=== PATIENT | female | born 1975 | race American Indian/Alaskan Native ===

== ENCOUNTER 2016-11-16 06:20 | Emergency (ER) | payer OTHER ==
[2016-11-16] MEDS ORDERED: LOPRESSOR PO ONE (06:39)
[2016-11-16 07:05] LABS: Basophils % (Auto) 0.7 % (0.0-1.8); Hematocrit 44.1 % (30.3-42.9); Hemoglobin 14.5 gm/dl (10.1-14.3); Mean Corpuscular HGB Conc 33 % (30-34); Mean Corpuscular Hemoglobin 27 pg (28-32); Mean Corpuscular Volume 82 fl (79-97); Platelet Count 276 K/mm3 (140-440); Red Blood Count 5.38 M/mm3 (3.65-5.03); Red Cell Distribution Width 13.8 % (13.2-15.2); White Blood Count 9.3 K/mm3 (4.5-11.0)
[2016-11-16 07:20] LABS: Anion Gap 15 mmol/L; Blood Urea Nitrogen 11 mg/dL (7-17); Carbon Dioxide 27 mmol/L (22-30); Glucose 413 mg/dL (65-100); Potassium 4.1 mmol/L (3.6-5.0); Sodium 135 mmol/L (137-145)
[2016-11-16 08:28] LABS: Bacteria,Urine 1+ /HPF (Negative); Bilirubin,Urine NEG (Negative); Blood,Urine MOD (Negative); Ketones,Urine NEG (Negative); Leukocyte Esterase,Urine MOD (Negative); Mucus,Urine FEW /HPF; Nitrite,Urine NEG (Negative); Protein,Urine <15 mg/dL mg/dL (Negative); Urobilinogen,Urine < 2.0 mg/dL (<2.0)
[2016-11-16] MEDS ORDERED: TORADOL IV ONE (11:39)
[2016-11-16] MEDS ORDERED: NACL 0.9% 1000 ML 1,000 ML IV ONE (11:39)
--- NOTE | 2016-11-16 11:44 | Emergency Department Report ---
ED Back Pain/Injury HPI - General Chief Complaint: Back Pain/Injury Stated Complaint: SEVERE BACK PAIN Time Seen by Provider: 11/16/16 11:02 Source: patient Limitations: No Limitations - History of Present Illness Initial Comments: 41-year-old female with history of hypertension and [id number] diabetes presenting today because of bilateral lower back pain for the last 2 days. Patient states that this came on slowly when she woke up. States that the pain is worse when trying to get up or do certain movements. She's had this in the past a few times. Denies any fever, dysuria, hematuria, saddle anesthesia, incontinence, difficulty walking, numbness, weakness, history of cancer or IV drug use. Has not had her diabetes medications since yesterday. - Related Data Home Medications Medication Instructions Recorded Confirmed Last Taken Amlodipine Besylate/Benazepril 1 each PO QDAY 11/16/16 11/16/16 11/16/16 [Lotrel 5-20 mg] Metoprolol [Lopressor TAB] 50 mg PO DAILY 11/16/16 11/16/16 11/16/16 Pravastatin Sodium [Pravastatin] 40 mg PO DAILY 11/16/16 11/16/16 11/15/16 Sitagliptin Phos/Metformin HCl 1 tab PO BID 11/16/16 11/16/16 11/15/16 [Janumet 50-1,000 mg] Previous Rx's Medication Instructions Recorded Last Taken Type Diazepam Tab [Valium] 5 mg PO QHS PRN #5 tab 11/16/16 Unknown Rx Ibuprofen [Motrin] 600 mg PO Q8H PRN #14 tablet 11/16/16 Unknown Rx Allergies Allergy/AdvReac Type Severity Reaction Status Date / Time No Known Allergies Allergy Verified 11/16/16 06:26 ED Review of Systems ROS: Stated complaint: SEVERE BACK PAIN Other details as noted in HPI Comment: All other systems reviewed and negative Constitutional: denies: chills, fever Respiratory: denies: cough Cardiovascular: denies: chest pain Gastrointestinal: denies: nausea, vomiting Genitourinary: denies: dysuria Musculoskeletal: back pain Skin: denies: rash Psychiatric: denies: anxiety ED Past Medical Hx - Past Medical History Previous Medical History?: Yes Hx Hypertension: Yes Hx Diabetes: Yes - Surgical History Past Surgical History?: No - Social History Smoking Status: Never Smoker Substance Use Type: None - Medications Home Medications: Home Medications Medication Instructions Recorded Confirmed Last Taken Type Amlodipine Besylate/Benazepril 1 each PO QDAY 11/16/16 11/16/16 11/16/16 History [Lotrel 5-20 mg] Diazepam Tab [Valium] 5 mg PO QHS PRN #5 tab 11/16/16 Unknown Rx Ibuprofen [Motrin] 600 mg PO Q8H PRN #14 tablet 11/16/16 Unknown Rx Metoprolol [Lopressor TAB] 50 mg PO DAILY 11/16/16 11/16/16 11/16/16 History Pravastatin Sodium [Pravastatin] 40 mg PO DAILY 11/16/16 11/16/16 11/15/16 History Sitagliptin Phos/Metformin HCl 1 tab PO BID 11/16/16 11/16/16 11/15/16 History [Janumet 50-1,000 mg] ED Physical Exam - General Limitations: No Limitations General appearance: alert - Head Head exam: Present: atraumatic - Eye Eye exam: Present: normal appearance - ENT ENT exam: Present: normal exam - Neck Neck exam: Present: normal inspection - Respiratory Respiratory exam: Present: normal lung sounds bilaterally. Absent: respiratory distress - Cardiovascular Cardiovascular Exam: Present: regular rate, normal rhythm - GI/Abdominal GI/Abdominal exam: Present: soft. Absent: distended, tenderness - Extremities Exam Extremities exam: Present: normal inspection, normal capillary refill - Back Exam Back exam: Present: normal inspection, full ROM, other (bilateral mild tenderness on lateral aspect of lower lumbar area, no midline tenderness, no stepoffs). Absent: muscle spasm - Neurological Exam Neurological exam: Present: alert, oriented X3. Absent: motor sensory deficit - Psychiatric Psychiatric exam: Present: normal affect - Skin Skin exam: Present: intact. Absent: rash ED Course Vital Signs 11/16/16 11/16/16 11/16/16 06:27 06:46 10:18 Temperature 98.5 F Pulse Rate 102 H 102 H Respiratory 18 Rate Blood Pressure 184/139 184/139 Blood Pressure [Left] O2 Sat by Pulse 99 100 Oximetry 11/16/16 11/16/16 11/16/16 10:21 10:29 10:31 Temperature Pulse Rate 78 Respiratory 18 18 Rate Blood Pressure 166/102 Blood Pressure 166/102 [Left] O2 Sat by Pulse 98 98 98 Oximetry 11/16/16 11/16/16 11/16/16 10:41 11:00 11:21 Temperature Pulse Rate 75 76 78 Respiratory 16 24 28 H Rate Blood Pressure 170/95 146/100 146/100 Blood Pressure [Left] O2 Sat by Pulse 98 98 98 Oximetry 11/16/16 11:48 Temperature Pulse Rate 74 Respiratory 18 Rate Blood Pressure Blood Pressure 153/102 [Left] O2 Sat by Pulse 98 Oximetry ED Medical Decision Making - Lab Data Result diagrams: 11/16/16 06:49 11/16/16 06:49 - Medical Decision Making labs preordered and show hyperglycemia without low CO2 and mild dehydration. Toradol ordered for pain. IV fluids ordered for dehydration and hyperglycemia. Patient has her medication for diabetes and is now taking it. UA slightly positive but patient has no signs or symptoms of uti with no dysuria or urinary frequency. repeat fs improved < 300 stable for discharge Critical care attestation.: If time is entered above; I have spent that time in minutes in the direct care of this critically ill patient, excluding procedure time. ED Disposition Clinical Impression: Low back pain Qualifiers: Chronicity: acute Back pain laterality: bilateral Sciatica presence: without sciatica Qualified Code(s): M54.5 - Low back pain Hyperglycemia due to type 2 diabetes mellitus Qualifiers: Diabetes mellitus chcf insulin use: without terminal carman use Qualified Code(s ): E11.65 - Type 2 diabetes mellitus with hyperglycemia Disposition: DISCHARGED TO HOME OR SELFCARE Is pt being admited?: No Does the pt Need Aspirin: No Condition: Stable Instructions: Acute Low Back Pain (ED), Diabetic Hyperglycemia (ED), Diabetes Mellitus Type 2 in Adults (ED) Additional Instructions: Please follow up with your primary care physician in the next 3-5 days. Return to the ER if your symptoms worsen or you develop new symptoms. Do not drive or operate heavy machinery while taking Valium. Prescriptions: Diazepam Tab [Valium] 5 mg PO QHS PRN #5 tab PRN Reason: Pain Ibuprofen [Motrin] 600 mg PO Q8H PRN #14 tablet PRN Reason: Pain Referrals: DR SANTIAGO,[facility] [Other] - 3-5 Days
[2016-11-16 13:37] VITALS: BP 145/95
== END 2016-11-16 13:46 | disposition home or self-care (01) ==
LOC: ED 06:20
DX: M54.5 Low back pain (principal); E11.65 Type 2 diabetes mellitus with hyperglycemia; I10 Essential (primary) hypertension
CPT/HCPCS: 36415; 80048; 81001; 81025; 82962; 85025; 96361; 96374; 99284; J1885; J7030